=== PATIENT | female | born 1990 | race American Indian/Alaskan Native ===

== ENCOUNTER 2017-07-23 07:39 | Outpatient (CLI) | payer MEDICAID ==
--- NOTE | 2017-07-23 09:54 | Fluoroscopy Report ---
FLUORO GUIDED HSG INDICATION: Secondary infertility. COMPARISON: None similar. FINDINGS: Hysterosalpingogram performed with cervix cannulated using standard sterile precautions. Preliminary radiograph demonstrates no significant abnormality. Injection of 11 cc of Omnipaque-300 under fluoroscopy demonstrates normal uterine cavity/contours. Prompt opacification of normal caliber fallopian tubes with free intraperitoneal spill noted bilaterally. CONCLUSION: Normal exam with patent bilateral fallopian tubes, as described. Thank you for the opportunity to participate in this patient's care.
== END 2017-07-23 07:40 | disposition home or self-care (01) ==
LOC: FLUORO 07:39
PROVIDERS: ATTEND Obstetrics & Gynecology
DX: N97.9 Female infertility, unspecified (principal); N93.8 Other specified abnormal uterine and vaginal bleeding
CPT/HCPCS: 36415; 58340; 74740; 84702; Q9967

== ENCOUNTER 2017-09-29 21:05 | Emergency (ER) | payer MEDICAID ==
[2017-09-29 21:40] VITALS: BP 112/48
[2017-09-29 22:16] LABS: Bacteria,Urine 1+ /HPF (Negative); Bilirubin,Urine NEG (Negative); Blood,Urine MOD (Negative); Color,Urine Yellow (Yellow); Mucus,Urine 2+ /HPF
[2017-09-29 22:17] LABS: Basophils % (Auto) 0.3 % (0.0-1.8); Eosinophils # (Auto) 0.5 K/mm3 (0.0-0.4); Eosinophils % (Auto) 3.3 % (0.0-4.3); Hemoglobin 12.2 gm/dl (10.1-14.3); Lymphocytes # (Auto) 2.6 K/mm3 (1.2-5.4); Lymphocytes % (Auto) 18.4 % (13.4-35.0); Mean Corpuscular HGB Conc 31 % (30-34); Mean Corpuscular Volume 81 fl (79-97); Monocytes # (Auto) 1.1 K/mm3 (0.0-0.8); Monocytes % (Auto) 7.8 % (0.0-7.3); Platelet Count 271 K/mm3 (140-440); Red Blood Count 4.82 M/mm3 (3.65-5.03)
[2017-09-29 22:20] LABS: Mean Corpuscular Hemoglobin 25 pg (28-32)
[2017-09-29 22:37] LABS: Alanine Aminotransferase 17 units/L (7-56); Albumin 3.7 g/dL (3.9-5); BUN/Creatinine Ratio 18; Blood Urea Nitrogen 14 mg/dL (7-17); Calcium 8.8 mg/dL (8.4-10.2); Hemolysis Index 8
--- NOTE | 2017-09-29 23:07 | Emergency Department Report ---
- General Chief Complaint: Upper Respiratory Infection Stated Complaint: HEADACHE,RIGHT EAR PAIN Time Seen by Provider: 09/29/17 23:01 Source: patient Mode of arrival: Ambulatory Limitations: No Limitations - History of Present Illness Initial Comments: 27-year-old -[place] female comes in complaining of headache and sinus congestion with productive mucus of yellow. She reports is been going on for 2 weeks without much resolution. Patient reports that she tried [id number] TheraFlu and sinus medicine as well as using a humidifier for comfort which she reports not working. PMH of blood clots during her . MD Complaint: rhinorrhea, nasal congestion, sinus pain -: week(s) (1) Severity scale (0 -10): 8 Quality: aching Consistency: constant Improves With: nothing Worsens With: changing head position Associated Symptoms: headache, rhinorrhea, nasal congestion. denies: chest pain , shortness of breath, nausea, vomiting, diarrhea Treatments Prior to Arrival: "cold medicine" - Related Data Previous Rx's Medication Instructions Recorded Last Taken Type HYDROcodone/APAP 5-325 [[place] 1 each PO Q6HR PRN #16 tablet 08/14/14 Unknown Rx 5-325 mg TAB] Ibuprofen [Motrin] 800 mg PO Q8HR PRN #30 tablet 03/29/15 Unknown Rx Neomycin Fish/Colist/Hc/Thonzon 5 drop AU TID #1 bottle 03/29/15 Unknown Rx [Cortisporin-Tc Ear Susp 0.33/0.3/1/0.05%] traMADol [Ultram] 50 mg PO Q6HR PRN #14 tablet 03/29/15 Unknown Rx Ibuprofen [Motrin 800 MG tab] 800 mg PO Q8HR PRN #30 tablet 09/29/17 Unknown Rx Loratadine [Claritin] 10 mg PO DAILY #30 tablet 09/29/17 Unknown Rx Mometasone Furoate [Nasonex] 2 spray NS QDAY #1 bottle 09/29/17 Unknown Rx Sulfamethoxazole/Trimethoprim 1 each PO Q12H #20 tablet 09/29/17 Unknown Rx [Bactrim DS TAB] Allergies Allergy/AdvReac Type Severity Reaction Status Date / Time No Known Allergies Allergy Unverified 09/16/13 01:10 ED Review of Systems ROS: Stated complaint: HEADACHE,RIGHT EAR PAIN Other details as noted in HPI Constitutional: denies: chills, fever Eyes: denies: eye pain, eye discharge, vision change ENT: congestion, other (sneezing, rhinorrhea, nasal pressure) Respiratory: denies: cough, shortness of breath, wheezing Cardiovascular: denies: chest pain, palpitations Endocrine: no symptoms reported Gastrointestinal: denies: abdominal pain, nausea, diarrhea Genitourinary: denies: urgency, dysuria, discharge Musculoskeletal: denies: back pain, joint swelling, arthralgia Skin: denies: rash, lesions Neurological: headache Psychiatric: denies: anxiety, depression Hematological/Lymphatic: denies: easy bleeding, easy bruising ED Past Medical Hx - Past Medical History Hx Pulmonary Embolism: Yes (2012 bilateral) Hx Asthma: Yes Additional medical history: History of PE when - Surgical History Past Surgical History?: No - Social History Smoking Status: Never Smoker Substance Use Type: None - Medications Home Medications: Home Medications Medication Instructions Recorded Confirmed Last Taken Type HYDROcodone/APAP 5-325 [[place] 1 each PO Q6HR PRN #16 tablet 08/14/14 Unknown Rx 5-325 mg TAB] Ibuprofen [Motrin] 800 mg PO Q8HR PRN #30 tablet 03/29/15 Unknown Rx Neomycin Fish/Colist/Hc/Thonzon 5 drop AU TID #1 bottle 03/29/15 Unknown Rx [Cortisporin-Tc Ear Susp 0.33/0.3/1/0.05%] traMADol [Ultram] 50 mg PO Q6HR PRN #14 tablet 03/29/15 Unknown Rx Ibuprofen [Motrin 800 MG tab] 800 mg PO Q8HR PRN #30 tablet 09/29/17 Unknown Rx Loratadine [Claritin] 10 mg PO DAILY #30 tablet 09/29/17 Unknown Rx Mometasone Furoate [Nasonex] 2 spray NS QDAY #1 bottle 09/29/17 Unknown Rx Sulfamethoxazole/Trimethoprim 1 each PO Q12H #20 tablet 09/29/17 Unknown Rx [Bactrim DS TAB] ED Physical Exam - General Limitations: No Limitations General appearance: alert, in no apparent distress - Head Head exam: Present: atraumatic, normocephalic, other (frontal and maxillary sinus tenderness) - Eye Eye exam: Present: normal appearance - ENT ENT exam: Present: mucous membranes moist, normal external ear exam - Expanded ENT Exam Expanded TM/Canal exam: Effusion: Right TM Mouth exam: Present: normal external inspection Teeth exam: Present: normal inspection Throat exam: Positive: normal inspection - Neck Neck exam: Present: normal inspection, full ROM. Absent: tenderness - Respiratory Respiratory exam: Present: normal lung sounds bilaterally. Absent: respiratory distress - Cardiovascular Cardiovascular Exam: Present: regular rate, normal rhythm. Absent: systolic murmur, diastolic murmur, rubs, gallop - GI/Abdominal GI/Abdominal exam: Present: soft, normal bowel sounds - Extremities Exam Extremities exam: Present: normal inspection - Back Exam Back exam: Present: normal inspection - Neurological Exam Neurological exam: Present: alert, oriented X3 - Skin Skin exam: Present: warm, dry, intact, normal color. Absent: rash ED Course Vital Signs 09/29/17 21:32 Temperature 98.2 F Pulse Rate 85 Respiratory 18 Rate Blood Pressure 112/48 Blood Pressure 112/48 [Right] O2 Sat by Pulse 97 Oximetry ED Medical Decision Making - Lab Data Result diagrams: 09/29/17 22:03 09/29/17 22:03 - Medical Decision Making Patient has been evaluated by this provider in fast track. I discussed the patient this appears to be a sinusitis that I would treat her with antibiotics and antihistamine as well as nasal decongestion medication. Discussed patient she should follow-up with her primary care provider symptoms persist or gets worse. Patient verbalized understanding. Critical care attestation.: If time is entered above; I have spent that time in minutes in the direct care of this critically ill patient, excluding procedure time. ED Disposition Clinical Impression: Sinusitis, acute Qualifiers: Sinusitis location: maxillary Recurrence: not specified as recurrent Qualified Code(s): J01.00 - Acute maxillary sinusitis, unspecified Disposition: - TO HOME OR SELFCARE Is pt being admited?: No Does the pt Need Aspirin: No Condition: Stable Instructions: Sinusitis (ED) Additional Instructions: Please complete antibiotics as prescribed. Take antihistamine daily use nasal spray as prescribed and follow up with primary care provider if symptoms persist or gets worse. Prescriptions: Ibuprofen [Motrin 800 MG tab] 800 mg PO Q8HR PRN #30 tablet PRN Reason: pain Loratadine [Claritin] 10 mg PO DAILY #30 tablet Mometasone Furoate [Nasonex] 2 spray NS QDAY #1 bottle Sulfamethoxazole/Trimethoprim [Bactrim DS TAB] 1 each PO Q12H #20 tablet Referrals: PRIMARY CARE, [Primary Care Provider] - 3-5 Days Forms: Work/School Release Form(ED)
== END 2017-09-29 23:21 | disposition home or self-care (01) ==
LOC: ED 21:05
DX: J01.10 Acute frontal sinusitis, unspecified (principal); J01.00 Acute maxillary sinusitis, unspecified
CPT/HCPCS: 36415; 80053; 81001; 85025; 99283

== ENCOUNTER 2018-01-15 09:36 | Emergency (ER) | payer MEDICAID ==
[2018-01-15 10:29] LABS: Bilirubin,Urine NEG (Negative); Blood,Urine MOD (Negative); Color,Urine Yellow (Yellow); Mucus,Urine FEW /HPF; Protein,Urine <15 mg/dL mg/dL (Negative); Urobilinogen,Urine < 2.0 mg/dL (<2.0)
[2018-01-15 10:32] LABS: HCG Qualitative,Urine Positive (Negative)
--- NOTE | 2018-01-15 11:53 | Emergency Department Report ---
ED Abdominal Pain HPI - General Chief Complaint: Abdominal Pain Stated Complaint: STOMACH PAIN Time Seen by Provider: 01/15/18 11:45 Source: patient Mode of arrival: Ambulatory Limitations: No Limitations - History of Present Illness Initial Comments: Patient is 27 years old female 2 para 1. Patient is [address] Newberry. Patient presented to the ER complaining of abdominal cramping since yesterday associated with nausea but no vomiting. Patient stated that she saw Dr. Newberry yesterday. Patient denied any fever, chest pain or shortness of breath. Patient stated that she had history of DVT and PEs during before and she is waiting for a Lovenox to be approved by her insurance. - Related Data Previous Rx's Medication Instructions Recorded Last Taken Type HYDROcodone/APAP 5-325 [[place] 1 each PO Q6HR PRN #16 tablet 08/14/14 Unknown Rx 5-325 mg TAB] Ibuprofen [Motrin] 800 mg PO Q8HR PRN #30 tablet 03/29/15 Unknown Rx Neomycin Fish/Colist/Hc/Thonzon 5 drop AU TID #1 bottle 03/29/15 Unknown Rx [Cortisporin-Tc Ear Susp 0.33/0.3/1/0.05%] traMADol [Ultram] 50 mg PO Q6HR PRN #14 tablet 03/29/15 Unknown Rx Ibuprofen [Motrin 800 MG tab] 800 mg PO Q8HR PRN #30 tablet 09/29/17 Unknown Rx Loratadine [Claritin] 10 mg PO DAILY #30 tablet 09/29/17 Unknown Rx Mometasone Furoate [Nasonex] 2 spray NS QDAY #1 bottle 09/29/17 Unknown Rx Sulfamethoxazole/Trimethoprim 1 each PO Q12H #20 tablet 09/29/17 Unknown Rx [Bactrim DS TAB] Allergies Allergy/AdvReac Type Severity Reaction Status Date / Time No Known Allergies Allergy Unverified 09/16/13 01:10 ED Review of Systems ROS: Stated complaint: STOMACH PAIN Other details as noted in HPI Comment: All other systems reviewed and negative Constitutional: denies: chills, fever Respiratory: denies: cough, orthopnea, shortness of breath, SOB with exertion, wheezing Cardiovascular: denies: chest pain, palpitations, dyspnea on exertion Gastrointestinal: abdominal pain, nausea. denies: vomiting, diarrhea, constipation, hematemesis Genitourinary: denies: urgency, dysuria Neurological: denies: headache, weakness, numbness, paresthesias, confusion, abnormal gait ED Past Medical Hx - Past Medical History Hx Pulmonary Embolism: Yes (2012 bilateral) Hx Asthma: Yes Additional medical history: History of PE when - Surgical History Past Surgical History?: No - Social History Smoking Status: Never Smoker Substance Use Type: None - Medications Home Medications: Home Medications Medication Instructions Recorded Confirmed Last Taken Type HYDROcodone/APAP 5-325 [[place] 1 each PO Q6HR PRN #16 tablet 08/14/14 Unknown Rx 5-325 mg TAB] Ibuprofen [Motrin] 800 mg PO Q8HR PRN #30 tablet 03/29/15 Unknown Rx Neomycin Fish/Colist/Hc/Thonzon 5 drop AU TID #1 bottle 03/29/15 Unknown Rx [Cortisporin-Tc Ear Susp 0.33/0.3/1/0.05%] traMADol [Ultram] 50 mg PO Q6HR PRN #14 tablet 03/29/15 Unknown Rx Ibuprofen [Motrin 800 MG tab] 800 mg PO Q8HR PRN #30 tablet 09/29/17 Unknown Rx Loratadine [Claritin] 10 mg PO DAILY #30 tablet 09/29/17 Unknown Rx Mometasone Furoate [Nasonex] 2 spray NS QDAY #1 bottle 09/29/17 Unknown Rx Sulfamethoxazole/Trimethoprim 1 each PO Q12H #20 tablet 09/29/17 Unknown Rx [Bactrim DS TAB] ED Physical Exam - General Limitations: No Limitations General appearance: alert, in no apparent distress - Head Head exam: Present: atraumatic, normocephalic, normal inspection - ENT ENT exam: Present: normal exam, normal orophraynx, mucous membranes moist - Neck Neck exam: Present: normal inspection, full ROM. Absent: tenderness, meningismus - Respiratory Respiratory exam: Present: normal lung sounds bilaterally. Absent: respiratory distress, wheezes, rales, rhonchi, chest wall tenderness, accessory muscle use, decreased breath sounds - Cardiovascular Cardiovascular Exam: Present: regular rate, normal rhythm, normal heart sounds - GI/Abdominal GI/Abdominal exam: Present: soft, normal bowel sounds. Absent: distended, tenderness, guarding, rebound, rigid, organomegaly, mass, bruit, pulsatile mass - Extremities Exam Extremities exam: Present: normal inspection, full ROM, normal capillary refill - Back Exam Back exam: Present: normal inspection, full ROM. Absent: tenderness, CVA tenderness (R), CVA tenderness (L), muscle spasm, paraspinal tenderness, vertebral tenderness - Neurological Exam Neurological exam: Present: alert, oriented X3, CN II-XII intact, normal gait, reflexes normal - Skin Skin exam: Present: warm, intact, normal color ED Course Vital Signs 01/15/18 01/15/18 09:43 11:39 Temperature 98.4 F Pulse Rate 60 Respiratory 16 18 Rate Blood Pressure 126/89 O2 Sat by Pulse 100 99 Oximetry ED Medical Decision Making - Lab Data Result diagrams: 01/15/18 11:55 01/15/18 11:55 - Radiology Data Radiology results: report reviewed Referring Physician: ESTHELA ROBINS Patient Name: PALOMO WIGGINS Date of : 1990 Sex: Female Report Date: 2018-01-15 Report Status: Finalized Findings [facility] [address] [place] [address] Ultrasound Report Signed Patient: PALOMO WIGGINS MR#: [id number] : 1990 Acct:[id number] Age/Sex: 27 / F ADM Date: 01/15/18 Loc: ED Attending Dr: Ordering Physician: ESTHELA ROBINS Date of Service: 01/15/18 Procedure(s): OB transvaginal Accession Number(s): [id number] cc: ESTHELA ROBINS ULTRASOUND OB LESS THAN 14 WEEKS FETUS ULTRASOUND OB TRANSVAGINAL HISTORY: Abdominal pain during . COMPARISON: None. TECHNIQUE: Transabdominal and transvaginal ultrasound with color doppler interrogation. FINDINGS: Uterus: 12 x 6 x 7 cm. No uterine mass. Endometrium: An intrauterine gestational sac containing a pole is identified. Heart rate measures 139 beats per minute. Estimated age on ultrasound is 6 weeks, 6 days. Right ovary: 3.1 x 2.4 x 4.5 cm. A 1.8 cm slightly complex cyst is identified. Left ovary: 2.2 x 2.1 x 1.6 cm. No abnormality. No pelvic fluid or mass is identified. Normal color doppler interrogation. IMPRESSION: Viable, single intrauterine as described. No acute abnormality is detected. Right ovarian cyst. Transcribed By: TTR Dictated By: STONE FUENTES JR, MD Electronically Authenticated By: STONE FUENTES JR, MD Signed Date/Time: 01/15/18 1502 DD/ 1500 TD/TT: 01/15/18 1502 Critical care attestation.: If time is entered above; I have spent that time in minutes in the direct care of this critically ill patient, excluding procedure time. ED Disposition Clinical Impression: Abdominal pain affecting Disposition: DC-01 TO HOME OR SELFCARE Is pt being admited?: No Condition: Stable Instructions: Abdominal Pain in (ED) Referrals: ELIZABETH NEWBERRY MD [Staff Physician] - 3-5 Days
[2018-01-15 12:06] LABS: Basophils % (Auto) 0.3 % (0.0-1.8); Eosinophils # (Auto) 0.1 K/mm3 (0.0-0.4); Eosinophils % (Auto) 0.6 % (0.0-4.3); Hematocrit 38.1 % (30.3-42.9); Hemoglobin 12.4 gm/dl (10.1-14.3); Lymphocytes % (Auto) 14.1 % (13.4-35.0); Mean Corpuscular HGB Conc 33 % (30-34); Mean Corpuscular Hemoglobin 27 pg (28-32); Mean Corpuscular Volume 82 fl (79-97); Monocytes # (Auto) 0.6 K/mm3 (0.0-0.8); Monocytes % (Auto) 4.6 % (0.0-7.3); Platelet Count 219 K/mm3 (140-440); Red Blood Count 4.67 M/mm3 (3.65-5.03); Red Cell Distribution Width 14.6 % (13.2-15.2)
[2018-01-15 12:23] LABS: BUN/Creatinine Ratio 17; Blood Urea Nitrogen 10 mg/dL (7-17); Calcium 8.9 mg/dL (8.4-10.2); Hemolysis Index 1
--- NOTE | 2018-01-15 15:25 | Ultrasound Report ---
ULTRASOUND OB LESS THAN 14 WEEKS FETUS ULTRASOUND OB TRANSVAGINAL HISTORY: Abdominal pain during . COMPARISON: None. TECHNIQUE: Transabdominal and transvaginal ultrasound with color doppler interrogation. FINDINGS: Uterus: 12 x 6 x 7 cm. No uterine mass. Endometrium: An intrauterine gestational sac containing a pole is identified. Heart rate measures 139 beats per minute. Estimated age on ultrasound is 6 weeks, 6 days. Right ovary: 3.1 x 2.4 x 4.5 cm. A 1.8 cm slightly complex cyst is identified. Left ovary: 2.2 x 2.1 x 1.6 cm. No abnormality. No pelvic fluid or mass is identified. Normal color doppler interrogation. IMPRESSION: Viable, single intrauterine as described. No acute abnormality is detected. Right ovarian cyst.
[2018-01-15 16:20] VITALS: BP 133/74
== END 2018-01-15 16:18 | disposition home or self-care (01) ==
LOC: ED 09:36
DX: O26.891 Other specified pregnancy related conditions, first trimester (principal); R10.9 Unspecified abdominal pain; J45.909 Unspecified asthma, uncomplicated; Z3A.01 Less than 8 weeks gestation of pregnancy
CPT/HCPCS: 36415; 76801; 76817; 80048; 81001; 81025; 84702; 85025; 99284

== ENCOUNTER 2018-03-04 09:55 | Emergency (ER) | payer MEDICAID ==
[2018-03-04 10:29] VITALS: BP 117/62
--- NOTE | 2018-03-04 11:44 | Emergency Department Report ---
ED ENT HPI - General Chief complaint: Sore Throat Stated complaint: THROAT PAIN Time Seen by Provider: 03/04/18 11:43 Source: patient Mode of arrival: Ambulatory Limitations: No Limitations - History of Present Illness Initial comments: This is a 27-year-old -[place] female who presents with a sore throat for one week. Patient states symptoms are worse at night and upon waking. States symptoms are better as the day progresses. She is 10 weeks gestation and unsure of what she can take for symptomatic relief. She is currently not taking anything. Relief. Last period was 6 months ago, A0. Patient denies vaginal discharge or bleeding, fever, shortness of breath, chest pain, wheezes, abdominal or low back pain. MD complaint: sore throat Onset/Timin -: week(s) Location: throat Severity: mild Severity scale (0 -10): 3 Quality: aching Consistency: intermittent Improves with: none Worsens with: swallowing Associated Symptoms: pain with swallowing, sore throat. denies: fever, cough, gum swelling, toothache, tinnitus, hearing loss, discharge from ear, rhinorrhea - Related Data Previous Rx's Medication Instructions Recorded Last Taken Type HYDROcodone/APAP 5-325 [[place] 1 each PO Q6HR PRN #16 tablet 08/14/14 Unknown Rx 5-325 mg TAB] Ibuprofen [Motrin] 800 mg PO Q8HR PRN #30 tablet 03/29/15 Unknown Rx Neomycin Fish/Colist/Hc/Thonzon 5 drop AU TID #1 bottle 03/29/15 Unknown Rx [Cortisporin-Tc Ear Susp 0.33/0.3/1/0.05%] traMADol [Ultram] 50 mg PO Q6HR PRN #14 tablet 03/29/15 Unknown Rx Ibuprofen [Motrin 800 MG tab] 800 mg PO Q8HR PRN #30 tablet 09/29/17 Unknown Rx Loratadine [Claritin] 10 mg PO DAILY #30 tablet 09/29/17 Unknown Rx Mometasone Furoate [Nasonex] 2 spray NS QDAY #1 bottle 09/29/17 Unknown Rx Sulfamethoxazole/Trimethoprim 1 each PO Q12H #20 tablet 09/29/17 Unknown Rx [Bactrim DS TAB] Allergies Allergy/AdvReac Type Severity Reaction Status Date / Time No Known Allergies Allergy Verified 03/04/18 10:27 ED Dental HPI - General Chief complaint: Sore Throat Stated complaint: THROAT PAIN Time Seen by Provider: 03/04/18 11:43 Source: patient Mode of arrival: Ambulatory Limitations: No Limitations - Related Data Previous Rx's Medication Instructions Recorded Last Taken Type HYDROcodone/APAP 5-325 [[place] 1 each PO Q6HR PRN #16 tablet 08/14/14 Unknown Rx 5-325 mg TAB] Ibuprofen [Motrin] 800 mg PO Q8HR PRN #30 tablet 03/29/15 Unknown Rx Neomycin Fish/Colist/Hc/[place] 5 drop AU TID #1 bottle 03/29/15 Unknown Rx [Cortisporin-Tc Ear Susp 0.33/0.3/1/0.05%] traMADol [Ultram] 50 mg PO Q6HR PRN #14 tablet 03/29/15 Unknown Rx Ibuprofen [Motrin 800 MG tab] 800 mg PO Q8HR PRN #30 tablet 09/29/17 Unknown Rx Loratadine [Claritin] 10 mg PO DAILY #30 tablet 09/29/17 Unknown Rx Mometasone Furoate [Nasonex] 2 spray NS QDAY #1 bottle 09/29/17 Unknown Rx Sulfamethoxazole/Trimethoprim 1 each PO Q12H #20 tablet 09/29/17 Unknown Rx [Bactrim DS TAB] Allergies Allergy/AdvReac Type Severity Reaction Status Date / Time No Known Allergies Allergy Verified 03/04/18 10:27 ED Review of Systems ROS: Stated complaint: THROAT PAIN Other details as noted in HPI Constitutional: denies: chills, fever ENT: throat pain. denies: ear pain, dental pain, hearing loss, epistaxis, congestion Respiratory: denies: cough, shortness of breath, wheezing Cardiovascular: denies: chest pain, palpitations Gastrointestinal: nausea (N&V, associated with ), vomiting. denies: abdominal pain, diarrhea Neurological: denies: headache, weakness, paresthesias Psychiatric: denies: anxiety, depression ED Past Medical Hx - Past Medical History Hx Pulmonary Embolism: Yes (2012 bilateral) Hx Asthma: Yes Additional medical history: History of PE when - Social History Smoking Status: Never Smoker Substance Use Type: None - Medications Home Medications: Home Medications Medication Instructions Recorded Confirmed Last Taken Type HYDROcodone/APAP 5-325 [[place] 1 each PO Q6HR PRN #16 tablet 08/14/14 Unknown Rx 5-325 mg TAB] Ibuprofen [Motrin] 800 mg PO Q8HR PRN #30 tablet 03/29/15 Unknown Rx Neomycin Fish/Colist/Hc/[place] 5 drop AU TID #1 bottle 03/29/15 Unknown Rx [Cortisporin-Tc Ear Susp 0.33/0.3/1/0.05%] traMADol [Ultram] 50 mg PO Q6HR PRN #14 tablet 03/29/15 Unknown Rx Ibuprofen [Motrin 800 MG tab] 800 mg PO Q8HR PRN #30 tablet 09/29/17 Unknown Rx Loratadine [Claritin] 10 mg PO DAILY #30 tablet 09/29/17 Unknown Rx Mometasone Furoate [Nasonex] 2 spray NS QDAY #1 bottle 09/29/17 Unknown Rx Sulfamethoxazole/Trimethoprim 1 each PO Q12H #20 tablet 09/29/17 Unknown Rx [Bactrim DS TAB] ED Physical Exam - General Limitations: No Limitations General appearance: alert, in no apparent distress, obese - ENT ENT exam: Present: mucous membranes moist, TM's normal bilaterally, normal external ear exam. Absent: normal orophraynx (erythematous posterior phraynx, tonsils normal without exudate) - Neck Neck exam: Present: normal inspection - Respiratory Respiratory exam: Present: normal lung sounds bilaterally. Absent: respiratory distress - Cardiovascular Cardiovascular Exam: Present: regular rate, normal rhythm. Absent: systolic murmur, diastolic murmur, rubs, gallop - GI/Abdominal GI/Abdominal exam: Present: soft, normal bowel sounds - Neurological Exam Neurological exam: Present: alert, oriented X3 - Psychiatric Psychiatric exam: Present: normal affect, normal mood - Skin Skin exam: Present: warm, dry, intact, normal color. Absent: rash ED Course Vital Signs 03/04/18 10:27 Temperature 98.7 F Pulse Rate 81 Respiratory 18 Rate Blood Pressure 117/62 O2 Sat by Pulse 98 Oximetry ED Medical Decision Making - Medical Decision Making Patient examined by me and stable. No distress noted. Vitals normal. Rapid strep obtained and negative. Reviewed results with patient. Discharged home stable. Encouraged to do supportive care for URI. Follow up with [facility]. Follow up with Primary Care Provider in 2-3 days. Critical care attestation.: If time is entered above; I have spent that time in minutes in the direct care of this critically ill patient, excluding procedure time. ED Disposition Clinical Impression: Upper respiratory infection Qualifiers: URI type: acute nasopharyngitis (common cold) Qualified Code(s): J00 - Acute nasopharyngitis [common cold] Disposition: TO HOME OR SELFCARE Is pt being admited?: No Does the pt Need Aspirin: No Condition: Stable Instructions: Upper Respiratory Infection (ED), Cold Symptoms (ED) Additional Instructions: Increase fluid intake and rest. Wash hands frequently. Continue taking Tylenol or ibuprofen to control fever. F/U with Primary Care Provider. Return to ER if fever, SOB, or difficulty breathing after 48 hours of supportive care. Referrals: [facility] [Outside] - 3-5 Days [facility] [Outside] - 3-5 Days [facility] [Provider Group] - 3-5 Days Forms: Work/School Release Form(ED) Time of Disposition: 12:59 Print Language: WELSH
== END 2018-03-04 13:08 | disposition home or self-care (01) ==
LOC: ED 09:55
DX: O99.511 Diseases of the respiratory system complicating pregnancy, first trimester (principal); J06.9 Acute upper respiratory infection, unspecified; J00 Acute nasopharyngitis [common cold]; Z3A.10 10 weeks gestation of pregnancy; J45.909 Unspecified asthma, uncomplicated; Z86.711 Personal history of pulmonary embolism
CPT/HCPCS: 87116; 87430; 99283

== ENCOUNTER 2019-09-14 19:23 | Emergency (ER) | payer MEDICAID ==
--- NOTE | 2019-09-14 19:39 | Emergency Department Report ---
Blank Doc - Documentation Documentation: 29-year-old female that presents with left ankle pain after twisting it. This initial assessment/diagnostic orders/clinical plan/treatment(s) is/are subject to change based on patient's health status, clinical progression and re- assessment by fellow clinical providers in the ED. Further treatment and workup at subsequent clinical providers discretion. Patient/guardians urged not to elope from the ED as their condition may be serious if not clinically assessed and managed. Initial orders include: 1- Patient sent to [facility] for further evaluation and treatment 2- xrays
[2019-09-14] MEDS ORDERED: HYDROcodone/ACETAMINOPHEN 5-325 MG TAB PO ONE (20:32)
--- NOTE | 2019-09-14 20:35 | Emergency Department Report ---
ED Lower Extremity HPI - General Chief Complaint: Extremity Injury, Lower Stated Complaint: LEFT ANKLE PAIN Time Seen by Provider: 09/14/19 19:38 Source: patient Mode of arrival: Wheelchair Limitations: No Limitations - History of Present Illness Initial Comments: Patient is a 29-year-old female presents emergency room with complaints of a left ankle injury that occurred just prior to arrival. She states that on 09/07/2019 she accidentally stepped into a hole and had an inversion injury of her ankle and states that it got better. She states that tonight she was getting out of the shower and had another inversion injury of her ankle. She states afterwards she was not able to ambulate secondary to pain. She denies any prior injury. She denies any numbness or weakness. She denies any past medical history. She denies any allergies to medications. She states her last menstrual cycle was September 02, 2019. - Related Data Previous Rx's Medication Instructions Recorded Last Taken Type HYDROcodone/APAP 5-325 [[place] 1 each PO Q6HR PRN #16 tablet 08/14/14 Unknown Rx 5-325 mg TAB] Ibuprofen [Motrin] 800 mg PO Q8HR PRN #30 tablet 03/29/15 Unknown Rx Neomycin Fish/Colist/Hc/Thonzon 5 drop AU TID #1 bottle 03/29/15 Unknown Rx [Cortisporin-Tc Ear Susp 0.33/0.3/1/0.05%] traMADoL [Ultram] 50 mg PO Q6HR PRN #14 tablet 03/29/15 Unknown Rx Ibuprofen [Motrin 800 MG tab] 800 mg PO Q8HR PRN #30 tablet 09/29/17 Unknown Rx Loratadine (Nf) [Claritin] 10 mg PO DAILY #30 tablet 09/29/17 Unknown Rx Mometasone Furoate [Nasonex] 2 spray NS QDAY #1 bottle 09/29/17 Unknown Rx Sulfamethoxazole/Trimethoprim 1 each PO Q12H #20 tablet 09/29/17 Unknown Rx [Bactrim DS TAB] Naproxen [EC-Naproxen] 500 mg PO BID PRN #20 tablet. 09/14/19 Unknown Rx Allergies Allergy/AdvReac Type Severity Reaction Status Date / Time No Known Allergies Allergy Verified 03/04/18 10:27 ED Review of Systems ROS: Stated complaint: LEFT ANKLE PAIN Other details as noted in HPI Comment: All other systems reviewed and negative ED Past Medical Hx - Past Medical History Hx Pulmonary Embolism: Yes (2012 bilateral) Hx Asthma: Yes Additional medical history: History of PE when - Social History Smoking Status: Never Smoker Substance Use Type: None - Medications Home Medications: Home Medications Medication Instructions Recorded Confirmed Last Taken Type HYDROcodone/APAP 5-325 [[place] 1 each PO Q6HR PRN #16 tablet 08/14/14 Unknown Rx 5-325 mg TAB] Ibuprofen [Motrin] 800 mg PO Q8HR PRN #30 tablet 03/29/15 Unknown Rx Neomycin Fish/Colist/Hc/Thonzon 5 drop AU TID #1 bottle 03/29/15 Unknown Rx [Cortisporin-Tc Ear Susp 0.33/0.3/1/0.05%] traMADoL [Ultram] 50 mg PO Q6HR PRN #14 tablet 03/29/15 Unknown Rx Ibuprofen [Motrin 800 MG tab] 800 mg PO Q8HR PRN #30 tablet 09/29/17 Unknown Rx Loratadine (Nf) [Claritin] 10 mg PO DAILY #30 tablet 09/29/17 Unknown Rx Mometasone Furoate [Nasonex] 2 spray NS QDAY #1 bottle 09/29/17 Unknown Rx Sulfamethoxazole/Trimethoprim 1 each PO Q12H #20 tablet 09/29/17 Unknown Rx [Bactrim DS TAB] Naproxen [EC-Naproxen] 500 mg PO BID PRN #20 tablet. 09/14/19 Unknown Rx ED Physical Exam - General Limitations: No Limitations General appearance: alert, in no apparent distress - Head Head exam: Present: atraumatic, normocephalic - Eye Eye exam: Present: normal appearance - ENT ENT exam: Present: mucous membranes moist - Extremities Exam Extremities exam: Present: other (ttp and moderate edema present to the left lateral malleolus, no obvious deformity, FROM with discomfort upon flexion and internal rotation, no obvious joint laxity, neurovascularly intact) - Neurological Exam Neurological exam: Present: alert, oriented X3 - Psychiatric Psychiatric exam: Present: normal affect, normal mood - Skin Skin exam: Present: warm, dry, intact ED Course Vital Signs 09/14/19 09/14/19 19:37 22:16 Temperature 98.3 F 98.1 F Pulse Rate 71 59 L Respiratory 18 18 Rate Blood Pressure 140/78 Blood Pressure 117/65 [Left] O2 Sat by Pulse 99 98 Oximetry ED Lower Extremity MDM - Radiology Data Radiology results: report reviewed Left ankle x-ray Dictated by Guy Vazquez MD No acute fracture or osseous malalignment. Mild soft tissue swelling at the ankle, probably more prominent laterally. No definite ankle effusion. - Medical Decision Making Patient is a 29-year-old female presents emergency room with complaints of a left ankle injury that occurred just prior to arrival. She states that on 09/07/2019 she accidentally stepped into a hole and had an inversion injury of her ankle and states that it got better. She states that tonight she was getting out of the shower and had another inversion injury of her ankle. She states afterwards she was not able to ambulate secondary to pain. She denies any prior injury. She denies any numbness or weakness. She denies any past medical history. She denies any allergies to medications. She states her last menstrual cycle was September 02, 2019. Vitals are stable. On exam: ttp and modera te edema present to the left lateral malleolus, no obvious deformity, FROM with discomfort upon flexion and internal rotation, no obvious joint laxity, neurovascularly intact. XR left ankle: No acute fracture or osseous malalignment. Mild soft tissue swelling at the ankle, probably more prominent laterally. No definite ankle effusion. Examination consistent with ankle sprain. Patient given ankle stirrup splint in place and crutches. Will have patient follow-up with orthopedic doctor for further evaluation. Patient did not drive to the emergency department and her pain was treated and improved. Patient given prescription for naproxen. Advised patient Please take medication as prescribed as needed. May use ice for 15 minutes at a time, elevate the leg. Follow-up with an orthopedic doctor. Return to the emergency room for any new or worsening symptoms. - Differential Diagnosis Strain, sprain, fracture, dislocation, tendinitis Critical care attestation.: If time is entered above; I have spent that time in minutes in the direct care of this critically ill patient, excluding procedure time. ED Disposition Clinical Impression: Left ankle sprain Qualifiers: Encounter type: initial encounter Involved ligament of ankle: unspecified li gament Qualified Code(s): S93.402A - Sprain of unspecified ligament of left ankle, initial encounter Disposition: - TO HOME OR SELFCARE Is pt being admited?: No Does the pt Need Aspirin: No Condition: Stable Instructions: Ankle Sprain (ED), Crutch Instructions (ED), Ankle Stirrup Splint (ED), RICE Therapy (ED) Additional Instructions: Please take medication as prescribed as needed. May use ice for 15 minutes at a time, elevate the leg. Follow-up with an orthopedic doctor. Return to the emergency room for any new or worsening symptoms. Prescriptions: Naproxen [EC-Naproxen] 500 mg PO BID PRN #20 tablet.dr SANABRIA Reason: pain Referrals: SHASHI VILLAREAL MD [Staff Physician] - 3-5 Days [facility] [Provider Group] - 3-5 Days Time of Disposition: 21:29 Print Language: TUNISIAN
--- NOTE | 2019-09-14 21:20 | XRay Report ---
LEFT ANKLE 3 VIEW(S) INDICATION / CLINICAL INFORMATION: inversion injury, left lateral malleolus pain/juan COMPARISON: None available. FINDINGS: No acute fracture or osseous malalignment. Mild soft tissue swelling at the ankle, probably more prom inent laterally. No definite ankle effusion. Signer Name: Guy Vazquez MD Signed: 09/14/2019 9:16 PM Workstation Name: [id number]
[2019-09-14 22:18] VITALS: BP 117/65
== END 2019-09-14 22:17 | disposition home or self-care (01) ==
LOC: ED 19:23
DX: S93.402A Sprain of unspecified ligament of left ankle, initial encounter (principal); Z86.711 Personal history of pulmonary embolism; J45.909 Unspecified asthma, uncomplicated; X50.1XXA Overexertion from prolonged static or awkward postures, initial encounter; Y93.89 Activity, other specified; Y92.091 Bathroom in other non-institutional residence as the place of occurrence of the external cause; Y99.8 Other external cause status
CPT/HCPCS: 99283